=== PATIENT | male | born 1960 | race Caucasian/White ===

== ENCOUNTER 2018-03-23 10:10 | Day surgery (SDC) | payer MEDICARE, OTHER ==
[~2018-03-23 10:10] MED LIST: Lactated Ringers 1,000 ML IV SCH
[2018-03-23] MEDS ORDERED: Propofol 200 MG/20 ML SDV ONE ×2 (11:20→12:09)
[2018-03-23] MEDS ORDERED: fentaNYL 100 MCG/2 ML SDV ONE (11:20)
[2018-03-23] MEDS ORDERED: Simethicone Drops 40 MG/0.6 ML 30 ML Bottle ONE (11:47)
--- NOTE | 2018-03-23 19:37 | OR ---
PREOPERATIVE DIAGNOSIS: History of colon polyps. POSTOPERATIVE DIAGNOSIS: History of colon polyps. PROCEDURE PERFORMED: Colonoscopy. INDICATION: The patient is a 58-year-old male, who presents for colonoscopy. He has a history of colon polyps 5 years ago on colonoscopy. PROCEDURE IN DETAIL: This was done in the endoscopy suite. Sedation was given per Anesthesia. He was placed in left lateral position. First, a rectal exam was done, it was normal. Scope was introduced into the rectum and slowly advanced to the rectum, sigmoid, descending, transverse, and ascending colon until the cecum was reached. Upon reaching the cecum, the scope was slowly withdrawn, looking all mucosal surface on the way out. No mucosal abnormalities, lesions, or polyps were noted. FINAL DIAGNOSIS: Normal colonoscopy. Recommend repeat colonoscopy in 10 years time. BKD: 03/23/2018 12:35:45 MODL: 03/23/2018 19:29:09 /[id number]
== END 2018-03-23 13:26 | disposition home or self-care (01) ==
LOC: VM.SDS 10:10
PROVIDERS: ATTEND Surgery
DX: Z12.11 Encounter for screening for malignant neoplasm of colon (principal); Z86.010 Personal history of colon polyps; I10 Essential (primary) hypertension; K21.9 Gastro-esophageal reflux disease without esophagitis; I73.9 Peripheral vascular disease, unspecified; A49.01 Methicillin susceptible Staphylococcus aureus infection, unspecified site; G62.9 Polyneuropathy, unspecified; J40 Bronchitis, not specified as acute or chronic; I42.9 Cardiomyopathy, unspecified; F32.9 Major depressive disorder, single episode, unspecified; E78.5 Hyperlipidemia, unspecified; Z79.01 Long term (current) use of anticoagulants; Z79.899 Other long term (current) drug therapy; Z87.891 Personal history of nicotine dependence
CPT/HCPCS: 00811; 85610; G0121; J2704; J3010; J7120